=== PATIENT | female | born 1945 | race Caucasian/White ===

== ENCOUNTER 2024-03-20 12:30 | Outpatient (CLI) | payer MEDICARE | END 2024-03-20 12:31 | disposition home or self-care (01) | LOC: CSHULT 12:30 | PROVIDERS: ATTEND Internal Medicine | DX: C50.919 Malignant neoplasm of unspecified site of unspecified female breast (principal) | CPT/HCPCS: 93306 ==

== ENCOUNTER 2024-12-01 13:09 | Outpatient (CLI) | payer MEDICARE | END 2024-12-01 13:10 | disposition home or self-care (01) | LOC: CSHMAMMO 13:09 | PROVIDERS: ATTEND Internal Medicine | DX: N63.25 Unspecified lump in the left breast, overlapping quadrants (principal); Z85.3 Personal history of malignant neoplasm of breast | CPT/HCPCS: 76642; 77065; G0279 ==

== ENCOUNTER 2025-03-03 12:29 | Outpatient (CLI) | payer MEDICARE | END 2025-03-03 12:30 | disposition home or self-care (01) | LOC: CSHULT 12:29 | DX: C50.919 Malignant neoplasm of unspecified site of unspecified female breast (principal); I08.0 Rheumatic disorders of both mitral and aortic valves | CPT/HCPCS: 93306 ==